=== PATIENT | male | born 1995 | race Caucasian/White ===

== ENCOUNTER 2023-05-01 22:21 | Emergency (ER) | payer SELFPAY ==
[2023-05-01 22:31] VITALS: BMI 24.7
[2023-05-01] MEDS ORDERED: VANCOMYCIN 1,000 MG in DEXTROSE 5%-WATER - 250 ML IVPB ONE (23:07)
[2023-05-01] MEDS ORDERED: PIPERACILLIN/TAZOB 4.5 GM 4.5 GM in DEXTROSE 5%-WATER 100 ML IVPB ONE (23:07)
[2023-05-01] MEDS ORDERED: ACETAMINOPHEN 1000 MG/100 ML BAG IVPB ONE (23:08)
[2023-05-01] MEDS ORDERED: ACETAMINOPHEN INJECTION 100 ML IVPB ONE (23:35)
[2023-05-01] MEDS ORDERED: PIPERACILLIN/TAZOB 4.5 GM 4.5 GM/100 ML BAG IVPB ONE (23:35)
[2023-05-01] MEDS ORDERED: VANCOMYCIN 1 GRAM (PRE-DOCKED) 1,000 MG/250 ML BAG IVPB ONE (23:36)
[2023-05-02 00:05] LABS: POTASSIUM 3.7 mmol/L (3.5-5.1)
[2023-05-02 00:07] LABS: CALCIUM 8.6 mg/dL (8.5-10.1)
[2023-05-02 00:08] LABS: BLOOD UREA NITROGEN 15.3 mg/dL (7-18); MAGNESIUM 2.1 mg/dL (1.8-2.4)
[2023-05-02 00:11] LABS: CREATININE 0.9 mg/dL (0.55-1.3)
[2023-05-02 00:13] LABS: BILIRUBIN,TOTAL 0.7 mg/dL (0.2-1); TOT PROT 7.4 g/dl (6.4-8.2)
[2023-05-02] MEDS ORDERED: morphine CARPU-JECT 2 MG/1 ML DISP.SYRIN IVPUSH ONE (00:14)
[2023-05-02 00:46] LABS: BASO % 0.3 % (0-2.0); EOS % 0.3 % (0-4.5); HEMATOCRIT 38.2 % (35.4-49); HEMOGLOBIN 12.8 GM/dL (11.7-16.9); LYMPH % 12.8 % (8-40); MCH 29.1 pg (25.7-33.7); MCHC 33.6 g/dl (32.0-35.9); MEAN CELL VOLUME 86.5 fl (80-96); MEAN PLT VOLUME 7.6 fl (7.5-11.1); MONO % 6.6 % (3.8-10.2); PLATELET COUNT 367 10^3/uL (134-434); RBC 4.42 M/mm3 (4.00-5.60); WHITE BLOOD COUNT 8.8 K/mm3 (4.0-10.0)
[2023-05-02 01:06] VITALS: BP 110/86; PULSE 72; RESP 18; TEMP 98
== END 2023-05-02 01:06 | disposition short-term general hospital (02) ==
LOC: JER 22:21
PROC: 3E03329 Introduction of Other Anti-infective into Peripheral Vein, Percutaneous Approach (ICD-10-PCS; principal; 2023-05-01)
PROC: 3E033NZ Introduction of Analgesics, Hypnotics, Sedatives into Peripheral Vein, Percutaneous Approach (ICD-10-PCS; 2023-05-01)
PROC: 3E03329 Introduction of Other Anti-infective into Peripheral Vein, Percutaneous Approach (ICD-10-PCS; 2023-05-02)
PROC: 3E033GC Introduction of Other Therapeutic Substance into Peripheral Vein, Percutaneous Approach (ICD-10-PCS; 2023-05-02)
DX: T81.31XA Disruption of external operation (surgical) wound, not elsewhere classified, initial encounter (principal); M79.641 Pain in right hand; R22.31 Localized swelling, mass and lump, right upper limb; R68.83 Chills (without fever)
CPT/HCPCS: 36415; 73130-TC-RT-FY; 80053; 83735; 85025; 87040; 99284-25

== ENCOUNTER 2023-05-08 11:45 | Emergency (ER) | payer SELFPAY ==
[2023-05-08 12:01] VITALS: BP 118/73; PULSE 78; RESP 18; TEMP 98.7; BMI 28.3
== END 2023-05-08 13:03 | disposition home or self-care (01) ==
LOC: JERFT 11:45 → JER 11:45 → JERFT 13:03
DX: Z48.02 Encounter for removal of sutures (principal)
CPT/HCPCS: 99281-25

== ENCOUNTER 2023-05-16 17:38 | Emergency (ER) | payer OTHER ==
[2023-05-16 17:55] VITALS: BP 124/63; PULSE 75; RESP 16; TEMP 98.5; BMI 28.3
== END 2023-05-16 19:21 | disposition home or self-care (01) ==
LOC: JERFT 17:38 → JER 17:38 → JERFT 19:21
DX: Z48.02 Encounter for removal of sutures (principal)
CPT/HCPCS: 99282-25